=== PATIENT | male | born 1955 | race Caucasian/White ===

== ENCOUNTER 2017-12-23 06:50 | Day surgery (SDC) | payer OTHER ==
[2017-12-23] MEDS: NS 1,000 ML IV ×2 (07:00→07:09)
[2017-12-23] MEDS ORDERED: PROPOFOL 200 MG/20 ML VIAL As Ordered ×2 (07:37→07:41)
== END 2017-12-23 08:34 | disposition home or self-care (01) ==
LOC: M OPP 06:50
DX: Z12.11 Encounter for screening for malignant neoplasm of colon (principal); K64.0 First degree hemorrhoids; K62.89 Other specified diseases of anus and rectum; D12.2 Benign neoplasm of ascending colon; K57.30 Diverticulosis of large intestine without perforation or abscess without bleeding; G43.909 Migraine, unspecified, not intractable, without status migrainosus; E11.9 Type 2 diabetes mellitus without complications; M19.90 Unspecified osteoarthritis, unspecified site; R12 Heartburn; Z79.82 Long term (current) use of aspirin; Z79.84 Long term (current) use of oral hypoglycemic drugs; Z79.899 Other long term (current) drug therapy; Z91.048 Other nonmedicinal substance allergy status; Z80.42 Family history of malignant neoplasm of prostate
CPT/HCPCS: 45385

== ENCOUNTER → 2019-04-03 | Outpatient (REF) | payer BC, OTHER ==
[~2019-04-03] MED LIST: ASPI81TA26 PO; FLOM0.4C39 PO; HYDR-3715 PO; METF10004 PO; MULT1TAB10 PO; NAPR250T4 PO; NIAC750T2; PRIL20TA2 PO; VITACAP9 PO; ZOFR4TAB14 PO
[2019-04-03 18:32] LABS: PERCENT SATURATION 22.6 % (19.7-50.0)
== END ==
LOC: M LAB REF 16:43
PROVIDERS: ATTEND Nurse Practitioner Adult Health
DX: Z01.818 Encounter for other preprocedural examination (principal); M16.11 Unilateral primary osteoarthritis, right hip

== ENCOUNTER → 2020-09-30 | Outpatient (CLI) | payer MEDICARE, OTHER, SELFPAY ==
[~2020-09-30] MED LIST changes: +ALBU83IN INH; +LISI-542; +OMEP-221
== END ==
LOC: M LABSMTC 13:24
PROVIDERS: ATTEND Anesthesiology
DX: Z01.812 Encounter for preprocedural laboratory examination (principal); Z20.828 Contact with and (suspected) exposure to other viral communicable diseases

== ENCOUNTER 2020-10-05 08:01 | Day surgery (SDC) | payer MEDICARE ==
[~2020-10-05] VITALS: Ht 170.2 cm; Wt 88.5 kg
[~2020-10-05 08:01] MED LIST changes: +LIDOCAINE 2% 100MG/5ML SDV (FOR ANES.) As Ordered ONE; +NS 1,000 ML IV ONE; +propofoL 200 MG/20 ML VIAL As Ordered ONE
[2020-10-05] MEDS ORDERED: fentaNYL 100 MCG/2 ML INJECTION (J3010) As Ordered ONE (09:38)
--- NOTE | 2020-10-05 09:54 | ROOR ---
Patient Name: Carlos Lamas Procedure Date: 10/05/2020 9:25 AM Date of : 1955 Age: 65 Room: [facility] Gender: Male Note Status: Finalized Procedure: Upper Endoscopy + Biopsies Indications: Heartburn, Diarrhea Providers: Brock Ahmadi MD Referring MD: Alejandrina Reyes NP Requesting Provider: Medicines: Monitored Anesthesia Care Complications: No immediate complications. Procedure: Pre-Anesthesia Assessment: - The heart rate, respiratory rate, oxygen saturations, blood pressure, adequacy of pulmonary ventilation, and response to care were monitored throughout the procedure. The Endoscope was introduced through the mouth, and advanced to the second part of duodenum. The upper GI endoscopy was accomplished without difficulty. The patient tolerated the procedure well. Findings: The Z-line was regular and was found 35 cm from the incisors. Multiple biopsies were obtained with cold forceps for evaluation to rule out Brunner's Esophagus randomly at the gastroesophageal junction. A medium-sized hiatal hernia was present. No other significant abnormalities were identified in a careful examination of the stomach. Biopsies were taken with a cold forceps in the gastric antrum for Helicobacter pylori testing. The exam of the duodenum was otherwise normal. Biopsies for histology were taken with a cold forceps in the first portion of the duodenum for evaluation of celiac disease. The exam was otherwise without abnormality. Impression: - Z-line regular, 35 cm from the incisors. - Medium-sized hiatal hernia. - The examination was otherwise normal. - Multiple biopsies were obtained at the gastroesophageal junction. - Biopsies were taken with a cold forceps for Helicobacter pylori testing. - Biopsies were taken with a cold forceps for evaluation of celiac disease. - The examination was otherwise normal. Recommendation: - Patient has a contact number available for emergencies. The signs and symptoms of potential delayed complications were discussed with the patient. Return to normal activities tomorrow. Written discharge instructions were provided to the patient. - High fiber diet. - Discharge patient to home. - Continue present medications. - Await pathology results. - Telephone GI clinic for pathology results in 1 week. - Return to referring physician. - The findings and recommendations were discussed with the patient. Procedure Code(s): --- Professional --- 73669, Esophagogastroduodenoscopy, flexible, transoral; with biopsy, single or multiple Diagnosis Code(s): --- Professional --- K44.9, Diaphragmatic hernia without obstruction or gangrene R12, Heartburn R19.7, Diarrhea, unspecified CPT copyright 2019 [employer]. All rights reserved. The codes documented in this report are preliminary and upon nursing assistant review may be revised to meet current compliance requirements. Brock Ahmadi MD Brock Ahmadi MD 10/05/2020 9:54:09 AM Electronically signed by Brock Ahmadi MD Number of Addenda: 0 Note Initiated On: 10/05/2020 9:25 AM Estimated Blood Loss: Estimated blood loss: none.
--- NOTE | 2020-10-05 10:14 | ROOR ---
Patient Name: Carlos Lamas Procedure Date: 10/05/2020 9:27 AM Date of : 1955 Age: 65 Room: [facility] Gender: Male Note Status: Finalized Procedure: Total Colonoscopy to Cecum + Bx. To r/o Microscopic Colitis Indications: Clinically significant diarrhea of unexplained origin Providers: Brock Ahmadi MD Referring MD: Alejandrina Reyes NP Requesting Provider: Medicines: Monitored Anesthesia Care Complications: No immediate complications. Procedure: Pre-Anesthesia Assessment: - The heart rate, respiratory rate, oxygen saturations, blood pressure, adequacy of pulmonary ventilation, and response to care were monitored throughout the procedure. The Colonoscope was introduced through the anus and advanced to the cecum, identified by appendiceal orifice and ileocecal valve. The colonoscopy was performed without difficulty. The patient tolerated the procedure well. The quality of the bowel preparation was good. Findings: The perianal and digital rectal examinations were normal. Non-bleeding internal hemorrhoids were found during retroflexion. The hemorrhoids were small and Grade I (internal hemorrhoids that do not prolapse). No other significant abnormalities were identified in a careful examination of the remainder of the colon. Biopsies for histology were taken with a cold forceps from the ascending colon, transverse colon and descending colon for evaluation of microscopic colitis. The exam was otherwise without abnormality on direct and retroflexion views. Scattered small-mouthed diverticula were found in the recto-sigmoid colon, sigmoid colon and descending colon. Impression: - Non-bleeding internal hemorrhoids. - The examination was otherwise normal on direct and retroflexion views. - Diverticulosis in the recto-sigmoid colon, in the sigmoid colon and in the descending colon. - Biopsies were taken with a cold forceps from the ascending colon, transverse colon and descending colon for evaluation of microscopic colitis. - The exam was otherwise normal to the cecum. Recommendation: - Patient has a contact number available for emergencies. The signs and symptoms of potential delayed complications were discussed with the patient. Return to normal activities tomorrow. Written discharge instructions were provided to the patient. - High fiber diet. - Discharge patient to home. - Continue present medications. - Await pathology results. - Telephone GI clinic for pathology results in 1 week. - Repeat colonoscopy in 10 years for screening purposes. - Return to referring physician. - The findings and recommendations were discussed with the patient. Procedure Code(s): --- Professional --- 43460, Colonoscopy, flexible; with biopsy, single or multiple Diagnosis Code(s): --- Professional --- K64.0, First degree hemorrhoids R19.7, Diarrhea, unspecified CPT copyright 2019 [employer]. All rights reserved. The codes documented in this report are preliminary and upon sr. social media & mobile manager review may be revised to meet current compliance requirements. Brock Ahmadi MD Brock Ahmadi MD 10/05/2020 10:13:40 AM Electronically signed by Brock Ahmadi MD Number of Addenda: 0 Note Initiated On: 10/05/2020 9:27 AM Estimated Blood Loss: Estimated blood loss: none.
[2020-10-05 10:40] VITALS: BP 135/78
== END 2020-10-05 11:10 | disposition home or self-care (01) ==
LOC: M OPP 08:01
PROVIDERS: ATTEND Internal Medicine Gastroenterology
DX: R19.7 Diarrhea, unspecified (principal); K64.0 First degree hemorrhoids; K57.90 Diverticulosis of intestine, part unspecified, without perforation or abscess without bleeding; R12 Heartburn; K44.9 Diaphragmatic hernia without obstruction or gangrene
CPT/HCPCS: 43239; 45380; 88305; J3010

== ENCOUNTER → 2022-10-08 | Outpatient (CLI) | payer MEDICARE ==
[~2022-10-08] MED LIST changes: +ALBU2.5V10 INH; -ALBU83IN INH; -LIDOCAINE 2% 100MG/5ML SDV (FOR ANES.) As Ordered ONE; -LISI-542; +LISI5TAB11; +NAPR-849 PO; -NAPR250T4 PO; -NS 1,000 ML IV ONE; -OMEP-221; +OMEP40CA5; -propofoL 200 MG/20 ML VIAL As Ordered ONE
== END ==
LOC: M EKG 10:27
PROVIDERS: ATTEND Nurse Practitioner Adult Health
DX: R00.2 Palpitations (principal)

== ENCOUNTER 2023-05-21 06:22 | Day surgery (SDC) | payer MEDICARE ==
[~2023-05-21] VITALS: Ht 167.6 cm; Wt 95.0 kg
[~2023-05-21 06:22] MED LIST changes: +ALEV220T22 PO; +B-CO1TAB12 PO; +CYCLOPENTOLATE 1% OPHTH SOLN 2ML BTL OS SCH; +LISI5TAB11 PO; +OFLOXACIN 0.3 % (OCUFLOX) OPTH SOL 5ML OS SCH; -OMEP40CA5; +OMEP40CA5 PO; +PHENYLEPHRINE 2.5% OPHTH SOL 2ML OS SCH; +PROPARACAINE 0.5% OPHTH SOL 15ML OS ONE; +RAPA8CAP4 PO; +ROSU10TA6 PO; +TROPICAMIDE 1% OPHTH SOLN 15ML OS SCH; +XALA0.007 OU
[2023-05-21] MEDS ORDERED: CEFUROXIME 1MG/0.1ML INTRACAMERAL INJ As Ordered ONE (06:36)
[2023-05-21] MEDS ORDERED: LIDOCAINE 1% SDV 5ML VIAL As Ordered ONE (06:36)
[2023-05-21] MEDS ORDERED: BSS IRR 500ML/OMIDRIA 4ML IRR BAG (OR ONLY) As Ordered ONE (06:37)
[2023-05-21] MEDS ORDERED: fentaNYL 100 MCG/2 ML INJECTION As Ordered ONE (06:53)
[2023-05-21] MEDS ORDERED: MIDAZOLAM INJ 2MG/2ML VIAL As Ordered ONE (06:54)
[2023-05-21 08:20] VITALS: BP 138/91; TEMP 97.1; O2SAT 98
== END 2023-05-21 08:40 | disposition home or self-care (01) ==
LOC: M SDC 06:22
PROVIDERS: ATTEND Ophthalmology
DX: H25.12 Age-related nuclear cataract, left eye (principal); I10 Essential (primary) hypertension; E78.5 Hyperlipidemia, unspecified; E11.9 Type 2 diabetes mellitus without complications; K21.9 Gastro-esophageal reflux disease without esophagitis; M19.90 Unspecified osteoarthritis, unspecified site; Z85.828 Personal history of other malignant neoplasm of skin; G43.909 Migraine, unspecified, not intractable, without status migrainosus; Z85.46 Personal history of malignant neoplasm of prostate; Z79.51 Long term (current) use of inhaled steroids; Z79.82 Long term (current) use of aspirin; Z79.84 Long term (current) use of oral hypoglycemic drugs; Z79.899 Other long term (current) drug therapy
CPT/HCPCS: 66991; C1783; J0697; J1097; J2250; J3010; V2632

== ENCOUNTER 2024-01-13 11:12 | Day surgery (SDC) | payer MEDICARE ==
[~2024-01-13] VITALS: Ht 167.6 cm; Wt 98.1 kg
[~2024-01-13 11:12] MED LIST changes: +AMLO1TAB24 PO; -CYCLOPENTOLATE 1% OPHTH SOLN 2ML BTL OS SCH; +FLURBIPROFEN 0.03% OPHTH SOLN 2.5 ML OD SCH; +LR 1,000 ML IV SCH; +MIDAZOLAM INJ 2MG/2ML VIAL As Ordered ONE; -OFLOXACIN 0.3 % (OCUFLOX) OPTH SOL 5ML OS SCH; -PHENYLEPHRINE 2.5% OPHTH SOL 2ML OS SCH; -PROPARACAINE 0.5% OPHTH SOL 15ML OS ONE; -TROPICAMIDE 1% OPHTH SOLN 15ML OS SCH; +fentaNYL 100 MCG/2 ML INJECTION As Ordered ONE
[2024-01-13] MEDS: ATROPINE SULFATE 1% OPHTH SOLN 2ML BTL OD SCH (13:31)
[2024-01-13] MEDS: TETRACAINE 0.5% OPHTH SOLN 4ML OD SCH (13:31)
[2024-01-13] MEDS: PHENYLEPHRINE 2.5% OPHTH SOL 2ML OD SCH (13:32)
[2024-01-13] MEDS: LIDOCAINE 1% SDV 5ML VIAL As Ordered ONE (15:22)
[2024-01-13] MEDS: CEFUROXIME 1MG/0.1ML INTRACAMERAL INJ As Ordered ONE (15:22)
[2024-01-13 15:38] VITALS: BP 151/89; TEMP 97.2; O2SAT 96
== END 2024-01-13 15:56 | disposition home or self-care (01) ==
LOC: M SDC 11:12
PROVIDERS: ATTEND Ophthalmology
DX: E11.36 Type 2 diabetes mellitus with diabetic cataract (principal); H25.11 Age-related nuclear cataract, right eye; I10 Essential (primary) hypertension; E78.00 Pure hypercholesterolemia, unspecified; Z79.84 Long term (current) use of oral hypoglycemic drugs; Z79.899 Other long term (current) drug therapy; K21.9 Gastro-esophageal reflux disease without esophagitis; Z85.828 Personal history of other malignant neoplasm of skin; Z85.46 Personal history of malignant neoplasm of prostate; Z92.3 Personal history of irradiation; Z92.21 Personal history of antineoplastic chemotherapy; Z98.42 Cataract extraction status, left eye
CPT/HCPCS: 66984; J0697; J2250; J3010; V2632

== ENCOUNTER → 2024-03-03 | Outpatient (CLI) | payer MEDICARE ==
[~2024-03-03] MED LIST changes: -FLURBIPROFEN 0.03% OPHTH SOLN 2.5 ML OD SCH; -LR 1,000 ML IV SCH; -MIDAZOLAM INJ 2MG/2ML VIAL As Ordered ONE; -ROSU10TA6 PO; +ROSU10TA61 PO; -fentaNYL 100 MCG/2 ML INJECTION As Ordered ONE
== END ==
LOC: M WUC 15:11
PROVIDERS: ATTEND Nurse Practitioner Adult Health
DX: R07.9 Chest pain, unspecified (principal)

== ENCOUNTER → 2024-12-10 | Outpatient (CLI) | payer MEDICARE ==
[~2024-12-10] MED LIST changes: -B-CO1TAB12 PO; +B-CO1TAB14 PO
== END ==
LOC: M WUC 11:19
PROVIDERS: ATTEND Nurse Practitioner Adult Health
DX: R05.9 Cough, unspecified (principal)

== ENCOUNTER → 2025-06-01 | Outpatient (CLI) | payer MEDICARE ==
[~2025-06-01] MED LIST changes: -FLOM0.4C39 PO; +TAMS-18 PO
== END ==
LOC: M RAD 14:24
PROVIDERS: ATTEND Nurse Practitioner Family
DX: R06.02 Shortness of breath (principal)